=== PATIENT | female | born 1980 | race American Indian/Alaskan Native ===

== ENCOUNTER 2016-08-08 11:17 | Emergency (ER) | payer SELFPAY ==
[2016-08-08 11:29] VITALS: BP 145/101
--- NOTE | 2016-08-08 11:56 | Emergency Department Report ---
ED Lower Extremity HPI - General Chief Complaint: Extremity Injury, Lower Stated Complaint: RIGHT KNEE PAIN Time Seen by Provider: 08/08/16 11:47 Source: patient Mode of arrival: Wheelchair Limitations: No Limitations - History of Present Illness Initial Comments: Patient reports that she caught her right knee pain. She said it started Monday and got worse today. Denies any injury. Denies any history of arthritis. Pain is located anteriorly and pain is worse with walking. She reports her pain is 8/10 and aching.. Denies any fever or chills. Reports that she has some swelling to her right knee and denies any history of ligament injury. Denies taking any [id number] medication for knee pain H/O HTN no meds taken today. MD Complaint: other (rt knee pain) Onset/Timin -: Gradual, Sudden Injury: Knee: Right (right knee pain) Type of Injury: unknown Place: home Severity: severe Severity scale (0 -10): 8 Improves With: nothing Worsens With: movement Context: walking Associated Symptoms: swelling, ambulatory. denies: snap/pop sensation, numbness , tingling, unable to bear weight, able to partially bear weight Treatments Prior to Arrival: other (none) - Related Data Previous Rx's Medication Instructions Recorded Last Taken Type Naproxen [Naprosyn] 500 mg PO BID PRN #20 tablet 08/08/16 Unknown Rx Allergies Allergy/AdvReac Type Severity Reaction Status Date / Time No Known Allergies Allergy Verified 08/08/16 11:29 ED Review of Systems ROS: Stated complaint: RIGHT KNEE PAIN Other details as noted in HPI Comment: All other systems reviewed and negative Constitutional: no symptoms reported Respiratory: no symptoms reported Cardiovascular: denies: chest pain, palpitations, dyspnea on exertion, orthopnea , edema, syncope, paroxysmal nocturnal dyspnea Gastrointestinal: denies: abdominal pain, nausea, vomiting Musculoskeletal: joint swelling, arthralgia. denies: back pain, myalgia Skin: denies: rash Neurological: abnormal gait (knee pain). denies: headache, weakness, numbness, paresthesias, confusion, vertigo ED Past Medical Hx - Past Medical History Previous Medical History?: Yes Hx Hypertension: Yes - Surgical History Past Surgical History?: No - Family History Family history: no significant - Social History Smoking Status: Current Every Day Smoker Substance Use Type: Alcohol - Medications Home Medications: Home Medications Medication Instructions Recorded Confirmed Last Taken Type Naproxen [Naprosyn] 500 mg PO BID PRN #20 tablet 08/08/16 Unknown Rx ED Physical Exam - General Limitations: No Limitations General appearance: alert, in no apparent distress - Head Head exam: Present: atraumatic, normocephalic, normal inspection - Eye Eye exam: Present: normal appearance, PERRL, EOMI. Absent: periorbital swelling , periorbital tenderness Pupils: Present: normal accommodation - ENT ENT exam: Present: normal exam, normal orophraynx - Neck Neck exam: Present: normal inspection, full ROM. Absent: tenderness, meningismus, lymphadenopathy - Respiratory Respiratory exam: Present: normal lung sounds bilaterally. Absent: respiratory distress, chest wall tenderness - Cardiovascular Cardiovascular Exam: Present: regular rate, normal rhythm, normal heart sounds - GI/Abdominal GI/Abdominal exam: Present: soft, normal bowel sounds. Absent: distended, tenderness, rigid - Expanded Lower Extremity Exam Right Hip exam: Present: normal inspection, full ROM, pelvic stability. Absent: tenderness, swelling, abrasion, laceration, ecchymosis, deformity, crepidus, dislocation, erythema, external rotation, internal rotation, shortening Upper Leg exam: Present: normal inspection, full ROM. Absent: tenderness, swelling, abrasion, laceration, ecchymosis, deformity, crepidus, dislocation, erythema Knee exam: Present: normal inspection, full ROM (assessment extend and flex her knee to bed she said it is painful), tenderness, swelling (mild), effusion, full knee extension. Absent: abrasion, laceration, ecchymosis, deformity, crepidus, dislocation, erythema, pain w/ pronation/supination, pain/laxity with valgus, pain/laxity with varus Lower Leg exam: Present: normal inspection, full ROM. Absent: tenderness, swelling, abrasion, laceration, ecchymosis, deformity, crepidus, dislocation, erythema, palpable cord, Chip's sign Ankle exam: Present: normal inspection, full ROM. Absent: tenderness, swelling , abrasion, laceration, ecchymosis, deformity, crepidus, dislocation, erythema, anterior draw sign Foot/Toe exam: Present: normal inspection, full ROM. Absent: tenderness, swelling, abrasion, laceration, ecchymosis, deformity, crepidus, dislocation, erythema, amputation, puncture wound, foreign body, calcaneal tenderness, tenderness at base of 5th metatarsal, nail avulsion, subungual hematoma Neuro vascular tendon exam: Present: no vascular compromise, significant pain with passive ROM of distal joint. Absent: pulse deficit, abnormal cap refill, motor deficit, sensory deficit, tendon deficit, extremity cold to touch, pallor , abnormal 2-point discrimination, decreased fine/light touch, foot drop, peroneal nerve deficit Gait: Positive: observed and limited by pain - Back Exam Back exam: Present: normal inspection, full ROM. Absent: tenderness, CVA tenderness (R), CVA tenderness (L), muscle spasm, paraspinal tenderness, vertebral tenderness, rash noted - Neurological Exam Neurological exam: Present: alert, oriented X3, abnormal gait (pt limping to RLE ), reflexes normal - Psychiatric Psychiatric exam: Present: normal affect, normal mood - Skin Skin exam: Present: warm, dry, intact, normal color. Absent: rash ED Course Vital Signs 08/08/16 11:26 Temperature 98 F Pulse Rate 91 H Respiratory 16 Rate Blood Pressure 145/101 O2 Sat by Pulse 100 Oximetry - Reevaluation(s) Reevaluation #1: 08/08/16 13:32 Patient received Toradol 60 mg in the emergency room for any pain - Orthopedic Splinting/Casting Injury #1 Side: right Lower Extremity Injury Location: knee Lower Extremity Immobilizer: knee immobilizer Additional Comments: did not want crutches. ED Lower Extremity MDM - Radiology Data Radiology results: report reviewed X-ray of the right knee revealed joint effusion. If internal derangement suspected, Recommend MRI right knee without contrast. Clinical examination does not reveal any deformity or ligament injury. Right knee with good color, movement, sensation and temperature - Medical Decision Making ED Course: Because the patient her x-ray results and instructed her that she will need to follow-up with orthopedic doctor to call today to schedule an appointment. She lives in a group and at first she is going to find an orthopedic doctor in the neck, knee for follow-up visit. Patient given Toradol 60 mg IM and also right knee immobilizer. She voiced understanding of discharge instructions and treatment plan and discharged home with prescription for naproxen condition. Patient is aware that she does have fluid on her knee and this she will need to call orthopedic for follow-up visit in the next 2 days. Critical care attestation.: If time is entered above; I have spent that time in minutes in the direct care of this critically ill patient, excluding procedure time. ED Disposition Clinical Impression: Right anterior knee pain Joint effusion, knee Qualifiers: Laterality: right Qualified Code(s): M25.461 - Effusion, right knee Disposition: TO HOME OR SELFCARE Is pt being admited?: No Does the pt Need Aspirin: No Condition: Stable Instructions: Knee Effusion (ED), Arthralgia (ED), Knee Pain (ED), Knee Exercises (GEN), Knee Immobilizer (ED) Additional Instructions: These call orthopedic doctor today to schedule an appointment follow right knee effusion . Knee immobilizer as instructed Prescriptions: Naproxen [Naprosyn] 500 mg PO BID PRN #20 tablet PRN Reason: Pain Referrals: DAVIS BANUELOS MD [Staff Physician] - 08/10/16 Forms: Work/School Release Form(ED)
--- NOTE | 2016-08-08 12:27 | XRay Report ---
RIGHT KNEE, 3 views: History: Right knee pain, difficulty ambulating. A moderate joint effusion is suspected on the lateral image. There is normal bone mineralization. No joint pathology or osseous abnormality is detected. IMPRESSION: Joint effusion. If internal derangement is suspected, MRI right knee without contrast is recommended.
[2016-08-08] MEDS ORDERED: TORADOL IM ONE (13:12)
== END 2016-08-08 13:48 | disposition home or self-care (01) ==
LOC: ED 11:17
DX: M25.461 Effusion, right knee (principal); M25.561 Pain in right knee; I10 Essential (primary) hypertension; F17.200 Nicotine dependence, unspecified, uncomplicated
CPT/HCPCS: 29505; 73562; 96372; 99283; J1885